=== PATIENT | male | born 1985 | race American Indian/Alaskan Native ===

== ENCOUNTER 2020-12-02 10:24 | Emergency (ER) | payer OTHER ==
[2020-12-02 12:07] VITALS: BP 145/92
--- NOTE | 2020-12-02 12:31 | Emergency Department Report ---
- General Chief complaint: Skin/Abscess/Foreign Body Stated complaint: INSECT BITE Time Seen by Provider: 12/02/20 12:28 Source: patient Mode of arrival: Ambulatory Limitations: No Limitations - History of Present Illness Initial comments: Patient is a 35-year-old male presents emergency room comp with complaints of a lump to the right forearm that began 4 days ago. He states he does have a new tattoo in this region which he got approximately 3 weeks ago, he states he did go to a tattoo shop and reports that he did see them open a new needle. He denies any drainage. He states he does frequently get boils but they come and go on their own. Has never had to have an I&D before. He denies any fever, drainage, nausea, vomiting, diarrhea, chills, numbness, weakness. No past medical history. No allergies to medicines. - Related Data Previous Rx's Medication Instructions Recorded Last Taken Type Mupirocin [Bactroban 2% OINT] 1 applic TP TID #1 tube 12/02/20 Unknown Rx Sulfamethoxazole/Trimethoprim 1 each PO BID 7 Days #14 tablet 12/02/20 Unknown Rx [Bactrim DS TAB] Allergies Allergy/AdvReac Type Severity Reaction Status Date / Time No Known Allergies Allergy Unverified 12/02/20 12:04 Abscess Boil HPI - HPI Chief Complaint: Skin/Abscess/Foreign Body Stated Complaint: INSECT BITE Time Seen by Provider: 12/02/20 12:28 Home Medications: Previous Rx's Medication Instructions Recorded Last Taken Type Mupirocin [Bactroban 2% OINT] 1 applic TP TID #1 tube 12/02/20 Unknown Rx Sulfamethoxazole/Trimethoprim 1 each PO BID 7 Days #14 tablet 12/02/20 Unknown Rx [Bactrim DS TAB] Allergies/Adverse Reactions: Allergies Allergy/AdvReac Type Severity Reaction Status Date / Time No Known Allergies Allergy Unverified 12/02/20 12:04 ED Review of Systems ROS: Stated complaint: INSECT BITE Other details as noted in HPI Comment: All other systems reviewed and negative ED Past Medical Hx - Past Medical History Previous Medical History?: No - Surgical History Past Surgical History?: No - Medications Home Medications: Home Medications Medication Instructions Recorded Confirmed Last Taken Type Mupirocin [Bactroban 2% OINT] 1 applic TP TID #1 tube 12/02/20 Unknown Rx Sulfamethoxazole/Trimethoprim 1 each PO BID 7 Days #14 tablet 12/02/20 Unknown Rx [Bactrim DS TAB] ED Physical Exam - General Limitations: No Limitations General appearance: alert, in no apparent distress - Head Head exam: Present: atraumatic, normocephalic - Eye Eye exam: Present: normal appearance - ENT ENT exam: Present: mucous membranes moist - Respiratory Respiratory exam: Absent: respiratory distress, accessory muscle use - Neurological Exam Neurological exam: Present: alert, oriented X3 - Psychiatric Psychiatric exam: Present: normal affect, normal mood - Skin Skin exam: Present: warm, dry, other (1 cm area of induration with approximately a 1cm area of surrounding erythema, no significant fluctuance, no opening, no drainage, neurovascularly intact) ED Course Vital Signs 12/02/20 12:06 Temperature 97.8 F Pulse Rate 64 Respiratory 18 Rate Blood Pressure 145/92 O2 Sat by Pulse 98 Oximetry ED Medical Decision Making - Medical Decision Making Patient is a 35-year-old male presents emergency room comp with complaints of a lump to the right forearm that began 4 days ago. He states he does have a new tattoo in this region which he got approximately 3 weeks ago, he states he did go to a tattoo shop and reports that he did see them open a new needle. He denies any drainage. He states he does frequently get boils but they come and go on their own. Has never had to have an I&D before. He denies any fever, drainage, nausea, vomiting, diarrhea, chills, numbness, weakness. No past medical history. No allergies to medicines. vss. on exam:1 cm area of induration with approximately a 1cm area of surrounding erythema, no significant fluctuance, no opening, no drainage, neurovascularly intact. Examination appears consistent with cellulitis, no drainable abscess at this time. Patient given a trial of oral antibiotics outpatient and discussed strict return precautions as he may need an I&D in the future if symptoms worsen. discussed importance of PCP follow up for reexamination. advised pt Please use medication as prescribed. Please do warm compresses 3 times a day. follow up with your primary care doctor in the next 3 days for reexamination. return to emergency room for any new or worsening symptoms including but not limited to worsening swelling, worsening redness, worsening drainage, fever, chills, vomiting, etc. Critical care attestation.: If time is entered above; I have spent that time in minutes in the direct care of this critically ill patient, excluding procedure time. ED Disposition Clinical Impression: Cellulitis Qualifiers: Site of cellulitis: extremity Site of cellulitis of extremity: upper extremity Laterality: right Qualified Code(s): L03.113 - Cellulitis of right upper limb Disposition: DC- TO HOME OR SELFCARE Is pt being admited?: No Does the pt Need Aspirin: No Condition: Stable Instructions: Cellulitis, Adult Additional Instructions: Please use medication as prescribed. Please do warm compresses 3 times a day. follow up with your primary care doctor in the next 3 days for reexamination. return to emergency room for any new or worsening symptoms including but not limited to worsening swelling, worsening redness, worsening drainage, fever, chills, vomiting, etc. Prescriptions: Sulfamethoxazole/Trimethoprim [Bactrim DS TAB] 1 each PO BID 7 Days #14 tablet Mupirocin [Bactroban 2% OINT] 1 applic TP TID #1 tube Referrals: PRIMARY CARE, [Primary Care Provider] - 2-3 Days Time of Disposition: 12:30 Print Language: COMORAN
== END 2020-12-02 12:40 | disposition home or self-care (01) ==
LOC: ED 10:24
DX: L03.113 Cellulitis of right upper limb (principal)
CPT/HCPCS: 99281

== ENCOUNTER 2020-12-09 10:41 | Emergency (ER) | payer OTHER ==
[2020-12-09 12:05] VITALS: BP 132/77
--- NOTE | 2020-12-09 13:02 | Emergency Department Report ---
- General Chief Complaint: Skin/Abscess/Foreign Body Stated Complaint: FOLLOW UP Time Seen by Provider: 12/09/20 12:37 Source: patient Mode of arrival: Ambulatory Limitations: No Limitations - History of Present Illness Initial Comments: 35-year-old -[place] male presents to the emergency room for a wound check to his right forearm. Patient states that he was seen here at about 4 5 days ago and was placed on antibiotics for a wound to his right forearm. Patient states that that particular area has started healing but another area popped up and is not healing. Patient states that the antibiotics had helped with this pain but having some purulent discharge from one of the areas. Patient denies any fever chills. Patient states he has been very compliant with his medication. Patient reports that his pain has improved from last visit. Onset/Timin -: week(s) Extremity Location: Right: Forearm Associated Symptoms: none Treatments Prior to Arrival: bandage, other (Antibiotics and pain medication ) - Related Data Previous Rx's Medication Instructions Recorded Last Taken Type Mupirocin [Bactroban 2% OINT] 1 applic TP TID #1 tube 12/02/20 Unknown Rx Sulfamethoxazole/Trimethoprim 1 each PO BID 7 Days #14 tablet 12/02/20 Unknown Rx [Bactrim DS TAB] cephALEXin [Keflex] 500 mg PO Q8HR 7 Days #21 cap 12/09/20 Unknown Rx Allergies Allergy/AdvReac Type Severity Reaction Status Date / Time No Known Allergies Allergy Unverified 12/02/20 12:04 ED Review of Systems ROS: Stated complaint: FOLLOW UP Other details as noted in HPI Comment: All other systems reviewed and negative ED Past Medical Hx - Past Medical History Previous Medical History?: No - Surgical History Past Surgical History?: No - Medications Home Medications: Home Medications Medication Instructions Recorded Confirmed Last Taken Type Mupirocin [Bactroban 2% OINT] 1 applic TP TID #1 tube 12/02/20 Unknown Rx Sulfamethoxazole/Trimethoprim 1 each PO BID 7 Days #14 tablet 12/02/20 Unknown Rx [Bactrim DS TAB] cephALEXin [Keflex] 500 mg PO Q8HR 7 Days #21 cap 12/09/20 Unknown Rx ED Physical Exam - General Limitations: No Limitations General appearance: alert, in no apparent distress - Head Head exam: Present: atraumatic, normocephalic - Eye Eye exam: Present: normal appearance - ENT ENT exam: Present: normal external ear exam - Respiratory Respiratory exam: Absent: accessory muscle use - Cardiovascular Cardiovascular Exam: Present: regular rate - Back Exam Back exam: Present: normal inspection, full ROM - Neurological Exam Neurological exam: Present: alert, oriented X3, normal gait - Psychiatric Psychiatric exam: Present: normal affect, normal mood - Expanded Skin Exam Expanded Type of lesion: Present: abscess Distribution of rash: RUE Description of rash: Present: erythematous, fluctuant, indurated. Absent: tenderness ED Course Vital Signs 12/09/20 12:03 Temperature 98.1 F Pulse Rate 74 Respiratory 18 Rate Blood Pressure 132/77 [Left] O2 Sat by Pulse 99 Oximetry ED Medical Decision Making - Medical Decision Making 35-year-old -[place] male presents to the emergency room for a wound check to his right forearm. Patient states that he was seen here at about 4- 5 days ago and was placed on antibiotics for a wound to his right forearm. Patient states that that particular area has started healing but another area popped up and is not healing. Patient states that the antibiotics had helped with this pain but having some purulent discharge from one of the areas. Patient denies any fever chills. Patient states he has been very compliant with his medication. Patient reports that his pain has improved from last visit. Was able to open up wound that had a thick plug. Has a deep dwelling approximately 1-1/2 cm. Cleaned it out with Betadine packed it with iodoform dressing. Place clean dressing with Scotty. Discussed with patient placed him on antibiotics continue with Bactroban but just a thin layer. Keep dressing clean and dry. Follow-up with a primary care provider. Wound care clinic Critical care attestation.: If time is entered above; I have spent that time in minutes in the direct care of this critically ill patient, excluding procedure time. ED Disposition Clinical Impression: Abscess of arm, right Disposition: DC-01 TO HOME OR SELFCARE Is pt being admited?: No Does the pt Need Aspirin: No Condition: Stable Instructions: Skin Abscess, [id number] Additional Instructions: Complete antibiotics as prescribed [id number] Tylenol or ibuprofen for pain. Keep wound clean and dry. Prescriptions: cephALEXin [Keflex] 500 mg PO Q8HR 7 Days #21 cap [facility]errals: [facility] [Outside] - 3-5 Days Forms: Work/School Release Form(ED) Time of Disposition: 13:04
== END 2020-12-09 13:04 | disposition home or self-care (01) ==
LOC: ED 10:41
DX: L02.413 Cutaneous abscess of right upper limb (principal); S51.811D Laceration without foreign body of right forearm, subsequent encounter; X58.XXXD Exposure to other specified factors, subsequent encounter
CPT/HCPCS: 99282

== ENCOUNTER 2021-02-20 11:32 | Emergency (ER) | payer OTHER ==
[2021-02-20 11:58] VITALS: BP 145/71
--- NOTE | 2021-02-20 12:48 | Emergency Department Report ---
ED General Adult HPI - General Chief complaint: Eye Problems Stated complaint: PAIN IN BOTH EYES/TEARING UP, AND SWOLLEN Time Seen by Provider: 02/20/21 12:35 Source: patient Mode of arrival: Ambulatory Limitations: No Limitations - History of Present Illness Initial comments: Patient presents with complaints of bilateral eye irritation. He reports 5 days ago the irritation began in the right eye he woke up with his eye crusted shut. He reports some swelling to the eye and drainage that has mildly improved, however he left eye is now swollen and red also. He denies any vision changes, injuries to his eyes, painful eye movements, or difficulty moving his eyes. No past medical history per patient. He denies photophobia - Related Data Previous Rx's Medication Instructions Recorded Last Taken Type Mupirocin [Bactroban 2% OINT] 1 applic TP TID #1 tube 12/02/20 Unknown Rx Sulfamethoxazole/Trimethoprim 1 each PO BID 7 Days #14 tablet 12/02/20 Unknown Rx [Bactrim DS TAB] cephALEXin [Keflex] 500 mg PO Q8HR 7 Days #21 cap 12/09/20 Unknown Rx Ofloxacin 0.3% [Ocuflox 0.3% opth] 2 drops OP QID 7 Days #1 bottle 02/20/21 Unknown Rx Allergies Allergy/AdvReac Type Severity Reaction Status Date / Time No Known Allergies Allergy Unverified 12/02/20 12:04 ED Review of Systems ROS: Stated complaint: PAIN IN BOTH EYES/TEARING UP, AND SWOLLEN Other details as noted in HPI Constitutional: denies: chills, fever, malaise Eyes: eye pain, eye discharge. denies: vision change Skin: denies: change in color Neurological: denies: headache ED Past Medical Hx - Past Medical History Previous Medical History?: No - Surgical History Past Surgical History?: No - Medications Home Medications: Home Medications Medication Instructions Recorded Confirmed Last Taken Type Mupirocin [Bactroban 2% OINT] 1 applic TP TID #1 tube 12/02/20 Unknown Rx Sulfamethoxazole/Trimethoprim 1 each PO BID 7 Days #14 tablet 12/02/20 Unknown Rx [Bactrim DS TAB] cephALEXin [Keflex] 500 mg PO Q8HR 7 Days #21 cap 12/09/20 Unknown Rx Ofloxacin 0.3% [Ocuflox 0.3% opth] 2 drops OP QID 7 Days #1 bottle 02/20/21 Unknown Rx ED Physical Exam - General Limitations: No Limitations General appearance: alert, in no apparent distress - Head Head exam: Present: atraumatic, normocephalic - Eye Eye exam: Present: PERRL, EOMI (No pain noted with eye movement), conjunctival injection (Bilateral), other (Mild swelling noted to right upper eyelid without cellulitic changes). Absent: scleral icterus, periorbital swelling, periorbital tenderness - Respiratory Respiratory exam: Absent: respiratory distress - Cardiovascular Cardiovascular Exam: Present: regular rate - Neurological Exam Neurological exam: Present: alert, oriented X3 - Psychiatric Psychiatric exam: Present: normal affect, normal mood - Skin Skin exam: Present: warm, dry, intact, normal color. Absent: rash ED Course Vital Signs 02/20/21 11:57 Temperature 98.2 F Pulse Rate 96 H Respiratory 16 Rate Blood Pressure 145/71 O2 Sat by Pulse 98 Oximetry ED Medical Decision Making - Medical Decision Making Patient presents with complaints of bilateral eye irritation. He reports 5 days ago the irritation began in the right eye he woke up with his eye crusted shut. He reports some swelling to the eye and drainage that has mildly improved, however he left eye is now swollen and red also. He denies any vision changes, injuries to his eyes, painful eye movements, or difficulty moving his eyes. No past medical history per patient. He denies photophobia Treatment for bacterial conjunctivitis given. Recommend patient follows up with primary care in 3 to 5 days. He is well-appearing, his vitals are within normal limits, he is stable for discharge home. Discussed presumptive diagnosis, treatment plan, and signs and symptoms that should prompt immediate return to the ED in detail with patient who verbalizes understanding. Critical care attestation.: If time is entered above; I have spent that time in minutes in the direct care of this critically ill patient, excluding procedure time. ED Disposition Clinical Impression: Acute conjunctivitis of both eyes Disposition: 01 HOME / SELF CARE / HOMELESS Is pt being admited?: No Condition: Stable Instructions: Bacterial Conjunctivitis, Adult Prescriptions: Ofloxacin 0.3% [Ocuflox 0.3% opth] 2 drops OP QID 7 Days #1 bottle Referrals: [facility] [Provider Group] - 3-5 Days
== END 2021-02-20 13:06 | disposition home or self-care (01) ==
LOC: ED 11:32
DX: H10.33 Unspecified acute conjunctivitis, bilateral (principal)
CPT/HCPCS: 99281